=== PATIENT | female | born 1955 | race Caucasian/White ===

== ENCOUNTER → 2024-01-29 09:24 | Outpatient (REF) | payer MEDICARE, OTHER, SELFPAY | LOC: HWWDC 09:24 | PROVIDERS: ATTENDING PHYSICIAN Family Medicine | DX: Z12.31 Encounter for screening mammogram for malignant neoplasm of breast (principal) | CPT/HCPCS: 77063; 77067 ==

== ENCOUNTER 2024-05-28 10:04 | Emergency (ER) | payer MEDICARE, OTHER, SELFPAY ==
[2024-05-28 10:05] VITALS: BP 122/83
--- NOTE | 2024-05-28 11:10 | ED.GENMED ---
History of Present Illness
General
Chief Complaint: Back Pain
Source: patient
Exam Limitations: none
Time Seen by Provider: 05/28/24 10:57
History of Present Illness
History of Present Illness:
68yoF with a history of hypothyroidism and kidney stones presenting via EMS with her for evaluation of low back pain. Symptoms began a month ago with a dull ache in her left lower back. She has been seen by her PCP for this and was sent
for physical therapy. She had her first session 2 days ago and felt better afterwards. She coughed yesterday and pain has been severe since then. Pain intermittently radiates to the anterior left thigh. Pain worsens with movement and improves if
she lays on her side. She has taken ibuprofen without relief although has not taken a dose since yesterday afternoon. She is otherwise asymptomatic and denies any fevers, abdominal pain, paresthesias, saddle anesthesia, difficulty urinating,
incontinence, weight loss. No prior history of malignancy or IVDU. No prior back surgeries.
Past History
Past History
ED Past Medical History: Other (Kidney stones) and Other (Syncopal episode, vasovagal episode)
ED Past Surgical History: Cardiac (Defibrillator insertion and removal)
Social History
Tobacco: Non-smoker
Alcohol: Occasional
Personal:
Living: with family
Employment: Employed
Family History
Family History: Negative Early CAD or Sudden
Phy Exam
Physical Exam
Physical Exam:
Appears uncomfortable, non-toxic
General Physical Exam
General Presentation: well appearing
General age: appears stated age
General Skin: warm and dry
General Habitus: normal
General Mental: alert
ENT Exam
ENT Exam: normocephalic
Cardiovascular Exam
Cardiovascular Exam: no edema and normal peripheral pulses (2+ PT pulses bilaterally)
Pulmonary Exam
Pulmonary Exam: no respiratory distress
Neurological Exam
Neurological Exam: alert and other (5/5 strength in bilateral lower extremities)
Musculoskeletal Exam
Musculoskeletal Exam: other (+Point tenderness in L lumbar region. No skin changes.)
Skin Exam
Skin Exam: normal color and warm/dry
Psychiatric Exam
Psychiatric Exam: normal mood/affect
Course
Orders/Labs/Results
Orders:
Orders
05/28/24 11:09
CT Abd/pel Without Iv Or Oral Urgent
Comment:
Reason For Exam: L lower back/flank pain
Acetaminophen [Tylenol] 1,000 mg PO NOW STA
Ketorolac [Toradol] 15 mg IV NOW STA
Lidocaine [Lidocaine 4% Patch] 1 patch TOPICAL NOW STA
Apply Lidocaine patch(s) to:: L lower back
05/28/24 11:10
Oxycodone [Roxicodone] 5 mg PO NOW STA
05/28/24 11:13
Dexamethasone Sod Phosphate [Decadron] 10 mg IV NOW STA
05/28/24 11:23
Complete Blood Count/With Diff Urgent
Comprehensive Metabolic Panel Urgent
Urinalysis Reflex To Culture Urgent
Date Specimen was Collected: 05/28/24
Time Specimen was Collected: 11:18
Urine Microscopic Reflex Cult Urgent
Urine Culture Urgent
JULIANA Source: U
Specimen Description:
Date Specimen was Collected: 05/28/24
Time Specimen was Collected: 11:18
05/28/24 12:45
0.9% Sodium Chloride 500 ml [Nss] 500 ml IV BOLUS
Abnormal Lab Results
05/28/24
11:23
Absolute Neuts (auto) 9.0 H 10^3/uL
(1.4-6.5)
Absolute Lymphs (auto) 0.4 L 10^3/uL
(1.2-3.4)
Neutrophils % 93.4 H %
(42.2-75.2)
Lymphocytes % 4.6 L %
(20.5-51.1)
Monocytes % 1.4 L %
(1.7-9.3)
BUN 26 H mg/dl
(7-17)
Glucose 142 H mg/dl
(70-99)
Total Bilirubin 1.6 H mg/dl
(0.2-1.3)
Urine Ketones 3+ A
(Negative)
Ur Occult Blood Reflex 1+ A
(Negative)
Leukocyte Esterase Rfl 1+ A
(Negative)
Urine Bacteria (Reflex) Few A
(Negative)
05/28/24 11:23
05/28/24 11:23
Vital Signs
Initial and Last Documented VS:
Initial Vital Signs
Temp Pulse Resp BP Pulse Ox
97.3 F 45 18 122/83 98
05/28/24 10:05 05/28/24 10:05 05/28/24 10:05 05/28/24 10:05 05/28/24 10:05
Last Documented Vital Signs
Temp Pulse Resp BP Pulse Ox
97.3 F 78 18 120/89 99
05/28/24 10:05 05/28/24 13:03 05/28/24 13:03 05/28/24 13:03 05/28/24 13:03
MDM/Problems Addressed
Differential Diagnosis Includes:
68yoF here with L lower back pain x 1 month. Became severe after coughing yesterday. Intermittently radiating to L anterior thigh. No red flags in history including no fevers, incontinence, saddle anesthesia, hx of malignancy. VSS. She appears
uncomfortable but is non-toxic. There is reproducible tenderness on exam. Lower extremities are neurovascularly intact. Differential diagnosis includes but is not limited to: muscular spasm/strain, lumbar radiculopathy, less likely kidney stone,
doubt fracture
Initial ED plan: Check CBC, CMP, UA, and CT abdomen without contrast. IV Toradol, Decadron, Tylenol, oxycodone, and lidocaine patch for symptoms.
*Critical Care Note
Total Time (30-74mins, 75-104mins- exclusive of procedures): Not Applicable
Update Note
Update Note:
Labs overall unremarkable including normal white count function. UA with 3+ ketones suggesting some dehydration and IV fluid bolus was ordered. CT is negative for acute findings. There is mild wall thickening of the ascending colon which may be
secondary to underdistention versus colitis. Patient has no symptoms to suggest colitis. Pain improved on reassessment. No indication for hospitalization. She was started on a course of prednisone. Supportive care discussed. Advised follow-up
with orthopedics and pain management. ED return precautions reviewed. Patient in agreement with plan and was discharged in stable condition.
ED Attending Note
-
Portions of this chart may have been created with voice recognition software.� Occasional wrong word or��sound alike� substitutions may have occurred due to the inherent limitations of voice recognition software.
Discharge Plan
Departure
Patient Disposition: Home (Routine Discharge)
Date of Disposition: 05/28/24
Time of Disposition: 13:41
Patient with high blood pressure during this ER visit?: No
Discharge Problem:
Acute left-sided low back pain
Instructions: Low Back Pain (DC)
Prescriptions:
New
prednisone 20 mg tablet
40 mg PO DAILY 5 Days Qty: 10 0RF
No Action
ciprofloxacin HCl [Cipro] 250 MG tablet
250 mg PO BID Qty: 12 0RF
oxycodone-acetaminophen 5 MG/325 MG tablet
1 tab PO Q4HPRN PRN (Reason: pain) Qty: 18 0RF
tamsulosin 0.4 MG capsule
0.4 mg PO DAILY Qty: 14 0RF
Referrals:
Qiana Oscar DO [Family Provider] -
Ranjan Hernandez MD [Active] -
Shoaib Rodriguez MD [Active] -
Activity Restrictions/Additional Instructions:
Take prednisone as prescribed. Apply heat to affected area. Use lidocaine patches daily (12 hours on, 12 hours off). Take Tylenol 650mg and ibuprofen 400mg every 6 hours as needed.
Please follow-up with orthopedics and pain management. Return to the ER with any new or worsening symptoms.
Interventions
Interventions:
*Risk Screen - Suicide Last Done: 05/28/24 10:05
*General Assessment Last Done: 05/28/24 10:05
*Neglect/Abuse Screening Last Done: 05/28/24 10:05
*ED- Fall Risk Assessment Last Done: 05/28/24 13:55
*ED COVID-19 Vaccine History Last Done: 05/28/24 10:05
*Nursing Disposition Last Done: 05/28/24 13:55
ED-Musculoskeletal Assessment Last Done: 05/28/24 11:38
Discharge Date and Time
Discharge Date/Time: 05/28/24 13:55
Print Language: SYRIAC
[2024-05-28] MEDS: LIDOCAINE 4% PATCH 1 PATCH TOPICAL (11:24)
[2024-05-28] MEDS: TORADOL 15 MG IV (11:24)
[2024-05-28] MEDS: TYLENOL 1000 MG PO (11:25)
[2024-05-28] MEDS: DECADRON 10 MG IV (11:25)
[2024-05-28] MEDS: ROXICODONE 5 MG PO (11:25)
[2024-05-28 11:49] LABS: % Basophils 0.2 % (0-2); % Immature Granulocytes 0.4 % (0-0.5); % Lymphocytes 4.6 % (20.5-51.1); % Monocytes 1.4 % (1.7-9.3); % Neutrophils 93.4 % (42.2-75.2); Absolute Lymphocytes 0.4 10^3/uL (1.2-3.4); Absolute Monocytes 0.1 10^3/uL (0.1-0.6); Hemoglobin 15.4 g/dL (12.0-16.0); Mean Corpuscular Hgb 30.8 pg (27.0-31.0); Mean Platelet Volume 9.4 fL (7.4-10.4); Nucleated Red Blood Cells % 0 %; Platelet Count 210 10^3/uL (130-400); Red Cell Dist. Width 11.9 % (11.5-14.5); Urine Albumin Negative (Neg - Trace); Urine Bilirubin Negative (Negative); Urine Character Clear (Clear); Urine Color Yellow; Urine Glucose Negative (Negative); Urine Ketone 3+ (Negative); Urine Leukocyte 1+ (Negative); Urine Nitrite Negative (Negative); Urine Occult Blood 1+ (Negative); Urine Urobilinogen Negative (Neg - 1+); White Blood Cell Count 9.6 10^3/uL (4.8-10.8)
[2024-05-28 12:04] LABS: ALT (SGPT) 17 U/L (0-35); AST (SGOT) 22 U/L (14-36); Albumin 4.7 g/dl (3.5-5.0); Alkaline Phosphatase 77 U/L (38-126); Blood Urea Nitrogen 26 mg/dl (7-17); Carbon Dioxide 30 mmol/L (22-30); Chloride 104 mmol/L (98-107); Glucose 142 mg/dl (70-99); Potassium 4.2 mmol/L (3.5-5.1); Sodium 142 mmol/L (135-145); Total Bilirubin 1.6 mg/dl (0.2-1.3); Total Protein 7.5 g/dl (6.3-8.2); eGFR > 60.00
[2024-05-28 12:26] LABS: Urine Red Blood Cell 0-2 /HPF (0-2)
[2024-05-28 12:27] LABS: Urine Bacteria Few (Negative)
[2024-05-28] MEDS: NSS 500 IV (13:02)
[2024-05-28 13:03] VITALS: BP 120/89
== END 2024-05-28 13:55 | disposition home or self-care (01) ==
LOC: EMR 10:04
PROVIDERS: Physician Assistant; EMERGENCY PHYSICIAN Student in an Organized Health Care Education/Training Program; FAMILY PHYSICIAN Family Medicine
DX: M54.50 Low back pain, unspecified (principal); E03.9 Hypothyroidism, unspecified; Z87.442 Personal history of urinary calculi; Z95.810 Presence of automatic (implantable) cardiac defibrillator
CPT/HCPCS: 99284; 96374; 96375; 96361; 74176; 80053; 81003; 81015; 85025; 87086

== ENCOUNTER → 2024-09-01 06:19 | Outpatient (REF) | payer MEDICARE, OTHER, SELFPAY | LOC: RAD 06:19 | PROVIDERS: ATTENDING PHYSICIAN Family Medicine | DX: Z87.891 Personal history of nicotine dependence (principal); R22.2 Localized swelling, mass and lump, trunk | CPT/HCPCS: 76770; 76882 ==

== ENCOUNTER → 2024-09-25 07:58 | Outpatient (REF) | payer MEDICARE, OTHER, SELFPAY | LOC: RAD 07:58 | PROVIDERS: ATTENDING PHYSICIAN Family Medicine | DX: R19.09 Other intra-abdominal and pelvic swelling, mass and lump (principal) | CPT/HCPCS: 74177; Q9967 ==